=== PATIENT | female | born 1975 | race Two or more races ===

== ENCOUNTER 2021-08-22 00:52 | Emergency (ER) | payer BC, OTHER ==
[~2021-08-22] VITALS: Ht 162.6 cm; Wt 172.4 kg
[2021-08-22 07:31] LABS: Potassium 4.2 mmol/L (3.5-5.1)
[2021-08-22 07:40] LABS: Albumin 3.4 g/dL (3.4-5.0); BUN/Creatinine Ratio 28.1; Bilirubin, Total 0.4 mg/dL (0.2-1.0); Calcium 8.9 mg/dL (8.5-10.1); Total Protein 7.2 g/dL (6.4-8.2)
[2021-08-22 08:58] LABS: Basophils # (auto) 0 10 ^3/uL (0-0.2); Basophils % (auto) 0.3 % (0.0-2.0); Eosinophils # (auto) 0.2 10 ^3/uL (0-0.8); Eosinophils % (auto) 2.2 % (0.0-7.0); Hematocrit 40.2 % (36.0-46.0); Hemoglobin 13.4 g/dL (12.2-16.2); Lymphocytes # (auto) 1.9 10 ^3/uL (0.4-5.4); Lymphocytes % (auto) 17.4 % (10.0-50.0); Mean Corpuscular Hemoglobin 29.1 pg (28.0-32.0); Mean Corpuscular Hgb Conc. 33.2 g/dL (32.0-36.0); Mean Corpuscular Volume 87.5 fL (80.0-100.0); Monocytes # (auto) 0.9 10 ^3/uL (0-1.3); Monocytes % (auto) 8.5 % (0.0-12.0); Neutrophils # (auto) 7.8 10 ^3/uL (1.6-8.6); Neutrophils % (auto) 71.6 % (37.0-80.0); Nucleated Red Blood Cells % 0.1 %; Red Blood Cells 4.59 10^6/uL (4.0-5.20); Red Cell Distribution Width 13.9 % (11.8-14.3); White Blood Cell 10.9 10^3/uL (4.4-10.8)
[2021-08-22 10:02] LABS: Urine Specific Gravity 1.026 (1.001-1.035)
[2021-08-22 10:03] LABS: Urine Blood 1+ /uL (Negative)
[2021-08-22 10:06] LABS: Urine WBC 5 /hpf (0 - 5)
[2021-08-22 10:07] LABS: Urine Bacteria FEW /hpf (None Seen)
[2021-08-22] MEDS ORDERED: HYDROcodone-ACET 10/325MG TAB PO ONE (11:00)
[2021-08-22] MEDS ORDERED: TETANUS-DIPTH-ACEL PERTUSSIS 0.5ML SYR Tdap IM ONE (11:00)
[2021-08-22 11:20] VITALS: BP 135/89
== END 2021-08-22 11:15 | disposition home or self-care (01) ==
LOC: ER 00:59
DX: S01.01XA Laceration without foreign body of scalp, initial encounter (principal); W22.01XA Walked into wall, initial encounter; Y93.89 Activity, other specified; Y92.89 Other specified places as the place of occurrence of the external cause; Y99.8 Other external cause status
CPT/HCPCS: 12002; 36415; 70450; 71045; 80053; 81001; 84484; 85025; 90471; 90715